=== PATIENT | female | born 1965 | race American Indian/Alaskan Native ===

== ENCOUNTER 2017-04-20 19:31 | Inpatient (IN) | payer OTHER ==
[2017-04-20 20:20] LABS: Basophils % (Auto) 0.5 % (0.0-1.8); Eosinophils % (Auto) 1.4 % (0.0-4.3); Hematocrit 21.5 % (30.3-42.9); Hemoglobin 6.5 gm/dl (10.1-14.3); Mean Corpuscular HGB Conc 30 % (30-34); Platelet Count 358 K/mm3 (140-440); Red Blood Count 3.32 M/mm3 (3.65-5.03); Red Cell Distribution Width 17.8 % (13.2-15.2); White Blood Count 4.4 K/mm3 (4.5-11.0)
[2017-04-20 20:21] LABS: Mean Corpuscular Hemoglobin 20 pg (28-32); Mean Corpuscular Volume 65 fl (79-97)
[2017-04-20 20:37] LABS: Anion Gap 20 mmol/L; BUN/Creatinine Ratio 14; Blood Urea Nitrogen 7 mg/dL (7-17); Calcium 8.5 mg/dL (8.4-10.2); Carbon Dioxide 20 mmol/L (22-30); Glucose 91 mg/dL (65-100); Potassium 3.9 mmol/L (3.6-5.0); Sodium 138 mmol/L (137-145)
[2017-04-21] MEDS ORDERED: NACL 0.9% 500 ML 500 ML IV ONE (00:33)
--- NOTE | 2017-04-21 00:41 | Emergency Department Report ---
ED General Adult HPI - General Chief complaint: Recheck/Abnormal Lab/Rx Stated complaint: MEDICAL CHECKUP Time Seen by Provider: 04/20/17 22:42 Source: patient Mode of arrival: Ambulatory Limitations: No Limitations - History of Present Illness Initial comments: 51 yo female who comes in today as she was instructed to come in for a blood transfusion. She states that she has been transfused in the past, and was contacted by her PMD on today due to her lab results. On her evaluation in the ED, her hgb is 6.5. She denies any chest pain, shortness of breath, nausea, vomiting, fever, or chills. -: year(s) (three years ) Consistency: constant Associated Symptoms: other (excessive ice eating/craving ) Treatments Prior to Arrival: none - Related Data Previous Rx's Medication Instructions Recorded Last Taken Type Docusate Sodium [Colace CAP] 100 mg PO BID #60 capsule 05/31/15 Unknown Rx Famotidine [Pepcid] 20 mg PO BID #60 tablet 05/31/15 Unknown Rx Ferrous Sulfate [Feosol 325 MG tab] 325 mg PO TID #90 tablet 05/31/15 Unknown Rx Lisinopril [Zestril TAB] 20 mg PO DAILY #30 tablet 05/31/15 Unknown Rx NIFEdipine XL [Procardia Xl] 60 mg PO DAILY #30 tablet 05/31/15 Unknown Rx Allergies Allergy/AdvReac Type Severity Reaction Status Date / Time No Known Allergies Allergy Unverified 06/14/13 08:35 ED Review of Systems ROS: Stated complaint: MEDICAL CHECKUP Other details as noted in HPI Constitutional: other (excessive ice eating ) Eyes: denies: eye pain, eye discharge, vision change ENT: denies: ear pain, throat pain Respiratory: denies: cough, shortness of breath, wheezing Cardiovascular: denies: chest pain, palpitations Endocrine: no symptoms reported Gastrointestinal: denies: abdominal pain, nausea, diarrhea Genitourinary: denies: urgency, dysuria, discharge Musculoskeletal: denies: back pain, joint swelling, arthralgia Skin: denies: rash, lesions Neurological: denies: headache, weakness, paresthesias Psychiatric: denies: anxiety, depression Hematological/Lymphatic: denies: easy bleeding, easy bruising ED Past Medical Hx - Past Medical History Hx Hypertension: Yes Hx CVA: No Hx Heart Attack/AMI: No Hx Congestive Heart Failure: No Hx Diabetes: No Hx Deep Vein Thrombosis: No Hx Pulmonary Embolism: No Hx GERD: No Hx Liver Disease: No Hx Renal Disease: No Hx Sickle Cell Disease: No Hx Arthritis: No Hx Headaches / Migraines: No Hx Seizures: No Hx Kidney Stones: No Hx Psychiatric Treatment: No Hx Asthma: No Hx COPD: No Hx Tuberculosis: No Hx Dementia: No Hx HIV: No Additional medical history: goiter. iron deficiency anemia - Surgical History Hx Coronary Stent: No Hx Open Heart Surgery: No Hx Pacemaker: No Hx Internal Defibrillator: No Hx Cholecystectomy: Yes Hx Appendectomy: No Hx Breast Surgery: No Additional Surgical History: x 1, Tubal Ligation - Social History Smoking Status: Never Smoker Substance Use Type: None - Medications Home Medications: Home Medications Medication Instructions Recorded Confirmed Last Taken Type Docusate Sodium [Colace CAP] 100 mg PO BID #60 capsule 05/31/15 Unknown Rx Famotidine [Pepcid] 20 mg PO BID #60 tablet 05/31/15 Unknown Rx Ferrous Sulfate [Feosol 325 MG tab] 325 mg PO TID #90 tablet 05/31/15 Unknown Rx Lisinopril [Zestril TAB] 20 mg PO DAILY #30 tablet 05/31/15 Unknown Rx NIFEdipine XL [Procardia Xl] 60 mg PO DAILY #30 tablet 05/31/15 Unknown Rx ED Physical Exam - General Limitations: No Limitations General appearance: alert, in no apparent distress - Head Head exam: Present: atraumatic, normocephalic - Eye Eye exam: Present: normal appearance - ENT ENT exam: Present: mucous membranes moist - Neck Neck exam: Present: normal inspection - Respiratory Respiratory exam: Present: normal lung sounds bilaterally. Absent: respiratory distress - Cardiovascular Cardiovascular Exam: Present: regular rate, normal rhythm. Absent: systolic murmur, diastolic murmur, rubs, gallop - GI/Abdominal GI/Abdominal exam: Present: soft, normal bowel sounds - Extremities Exam Extremities exam: Present: normal inspection - Back Exam Back exam: Present: normal inspection - Neurological Exam Neurological exam: Present: alert, oriented X3 - Psychiatric Psychiatric exam: Present: normal affect, normal mood - Skin Skin exam: Present: warm, dry, intact, normal color. Absent: rash ED Course Vital Signs 04/20/17 04/20/17 04/20/17 19:57 22:40 23:00 Temperature 99.7 F H 99 F Pulse Rate 81 80 74 Respiratory 22 18 Rate Blood Pressure 178/103 177/101 Blood Pressure 187/91 [Left] O2 Sat by Pulse 98 100 100 Oximetry - Reevaluation(s) Reevaluation #1: 04/21/17 00:44 The patient admits to a history of anemia which she has had several blood transfusions. She denies any hematemesis, vaginal bleeding, or bloody stools. Admits to eating ice excessively. Was informed that she needed to come to the ED for a blood transfusion. Reevaluation #2: 04/21/17 02:39 Patient to be discharged upon completion of blood transfusion and a repeat H/H. Care transferred to Dr. Reina. ED Medical Decision Making - Lab Data Result diagrams: 04/20/17 20:07 04/20/17 20:07 - Medical Decision Making Iron deficiency anemia - Differential Diagnosis iron deficiency anemia Critical care attestation.: If time is entered above; I have spent that time in minutes in the direct care of this critically ill patient, excluding procedure time. ED Disposition Clinical Impression: Iron deficiency anemia Disposition: DC-01 TO HOME OR SELFCARE Is pt being admited?: No Does the pt Need Aspirin: No Condition: Fair Instructions: Iron Deficiency Anemia (ED) Additional Instructions: Please follow up with your PMD on next week for further evaluation of your chronic anemia. Return to the ED for any nausea, vomiting, lightheadedness, dizziness, shortness of breath, or fatigue. Referrals: LORETTA TORRES MD [Primary Care Provider] - 3-5 Days
[2017-04-21 04:11] LABS: Hemoglobin 5.9 gm/dl (10.1-14.3)
[2017-04-21 04:12] LABS: Hematocrit 19.4 % (30.3-42.9)
[2017-04-21] MEDS ORDERED: MORPHINE IV PRN (04:38)
[2017-04-21] MEDS ORDERED: MILK OF MAGNESIA PO PRN (04:38)
[2017-04-21] MEDS ORDERED: DULCOLAX PR PRN (04:38)
[2017-04-21] MEDS ORDERED: TYLENOL PO PRN (04:38)
[2017-04-21] MEDS ORDERED: ZOFRAN IV PRN (04:38)
--- NOTE | 2017-04-21 04:38 | Progress Note ---
Hospitalist Physical - Constitutional Vitals: Temp Pulse Resp BP Pulse Ox 98.9 F 77 15 156/87 100 04/21/17 04:25 04/21/17 04:25 04/21/17 04:25 04/21/17 04:25 04/21/17 04:25 Results - Labs CBC & Chem 7: 04/21/17 02:56 04/20/17 20:07 Labs: Laboratory Last Values WBC 4.4 K/mm3 (4.5-11.0) L 04/20/17 20:07 RBC 3.32 M/mm3 (3.65-5.03) L 04/20/17 20:07 Hgb 5.9 gm/dl (10.1-14.3) L* 04/21/17 02:56 Hct 19.4 % (30.3-42.9) L* 04/21/17 02:56 MCV 65 fl (79-97) L 04/20/17 20:07 MCH 20 pg (28-32) L 04/20/17 20:07 MCHC 30 % (30-34) 04/20/17 20:07 RDW 17.8 % (13.2-15.2) H 04/20/17 20:07 Plt Count 358 K/mm3 (140-440) 04/20/17 20:07 Lymph % (Auto) 35.3 % (13.4-35.0) H 04/20/17 20:07 [place] % (Auto) 7.4 % (0.0-7.3) H 04/20/17 20:07 Eos % (Auto) 1.4 % (0.0-4.3) 04/20/17 20:07 Baso % (Auto) 0.5 % (0.0-1.8) 04/20/17 20:07 Lymph # 1.6 K/mm3 (1.2-5.4) 04/20/17 20:07 [place] # 0.3 K/mm3 (0.0-0.8) 04/20/17 20:07 Eos # 0.1 K/mm3 (0.0-0.4) 04/20/17 20:07 Baso # 0.0 K/mm3 (0.0-0.1) 04/20/17 20:07 Seg Neutrophils % 55.4 % (40.0-70.0) 04/20/17 20:07 Seg Neutrophils # 2.4 K/mm3 (1.8-7.7) 04/20/17 20:07 Sodium 138 mmol/L (137-145) 04/20/17 20:07 Potassium 3.9 mmol/L (3.6-5.0) 04/20/17 20:07 Chloride 102.0 mmol/L (98-107) 04/20/17 20:07 Carbon Dioxide 20 mmol/L (22-30) L 04/20/17 20:07 Anion Gap 20 mmol/L 04/20/17 20:07 BUN 7 mg/dL (7-17) 04/20/17 20:07 Creatinine 0.5 mg/dL (0.7-1.2) L 04/20/17 20:07 Estimated GFR > 60 ml/min 04/20/17 20:07 BUN/Creatinine Ratio 14 % 04/20/17 20:07 Glucose 91 mg/dL (65-100) 04/20/17 20:07 Calcium 8.5 mg/dL (8.4-10.2) 04/20/17 20:07 Blood Type O POSITIVE 04/20/17 20:07 Antibody Screen Negative 04/20/17 20:07 Crossmatch See Detail 04/20/17 20:07
--- NOTE | 2017-04-21 04:50 | History and Physical Report ---
History of Present Illness Date of examination: 04/21/17 Date of admission: 04/21/17 Chief complaint: Asked to come in for low hemoglobin History of present illness: Patient is 51-year-old with history of iron deficiency anemia, hypertension, obesity. She was sent in from primary care physician because of low hemoglobin. She apparently went to see primary care physician yesterday for routine follow -up and adjustment of antihypertensive medications. While there, routine blood work was done. Today she was called that her hemoglobin was very low 6.7. She denies any blood in the stool. No excessive blood loss from menses. She admits to fatigue, generalized weakness. She denies shortness of breath, chest pain, cough or vomiting. Workup has showed a hemoglobin of 6.5. She is being admitted for blood transfusion. Past History Past Medical History: anemia, hypertension, other (goiter) Past Surgical History: cholecystectomy, Other (tubal ligation) Social history: , lives with family, full code. denies: smoking, alcohol abuse Family history: diabetes, hypertension Medications and Allergies Allergies Allergy/AdvReac Type Severity Reaction Status Date / Time No Known Allergies Allergy Unverified 06/14/13 08:35 Home Medications Medication Instructions Recorded Confirmed Last Taken Type Docusate Sodium [Stool Softener] 100 mg PO BID 04/21/17 04/21/17 Unknown History Famotidine [Pepcid] 20 mg PO BID 04/21/17 04/21/17 Unknown History Ferrous Sulfate [Iron] 325 mg PO TID 04/21/17 04/21/17 Unknown History Lisinopril [Zestril] 20 mg PO DAILY 04/21/17 04/21/17 Unknown History NIFEdipine XL [Procardia Xl] 60 mg PO QDAY 04/21/17 04/21/17 Unknown History Ferrous Gluconate 240 mg PO QDAY #100 tablet 04/22/17 Unknown Rx Pantoprazole [Protonix] 40 mg PO BID #30 tablet 04/22/17 Unknown Rx Active Meds: Active Medications Acetaminophen (Tylenol) 650 mg PO Q4H PRN PRN Reason: Pain MILD(1-3)/Fever >100.5/TOBIAS Bisacodyl (Dulcolax) 10 mg PA QDAY PRN PRN Reason: Constipation unrelieved by MOM Dextrose/Sodium Chloride (D5ns) 1,000 mls @ 75 mls/hr IV DIRECT EUGENIE Magnesium Hydroxide (Milk Of Magnesia) 30 ml PO Q4H PRN PRN Reason: Constipation Morphine Sulfate (Morphine) 2 mg IV Q4H PRN PRN Reason: Pain, Moderate (4-6) Ondansetron HCl (Zofran) 4 mg IV Q6H PRN PRN Reason: nausea or vomiting Review of Systems All systems: negative (No fever, no cough, no hemetemesis, no abd pain. All other systems reviewed and are negative.) Exam - Physical Exam Narrative exam: GEN APPEARANCE : Not in acute distress, obese HEENT: Normocephalic, Atraumatic NECK : supple, throid enlarged. no JVD LUNGS: clear to auscultation bilaterally, no rales, no wheeze HEART: S1 and S2 regular, no murmurs, rubs or gallop, ABD: Soft, non tender, non distended, normal bowel sounds EXT: No edema, no clubbing, no cyanosis NEURO: Awake,alert, oriented x 3, Normal speech, moves all extremities Psych:Normal mood - Constitutional Vitals: Temp Pulse Resp BP Pulse Ox 98.6 F 78 16 166/88 100 04/21/17 04:40 04/21/17 04:40 04/21/17 04:40 04/21/17 04:40 04/21/17 04:40 Results - Labs CBC & Chem 7: 04/22/17 06:31 04/22/17 06:31 Labs: Abnormal lab results 04/20/17 04/20/17 04/20/17 Range/Units 20:07 20:07 20:07 WBC 4.4 L (4.5-11.0) K/mm3 RBC 3.32 L (3.65-5.03) M/mm3 Hgb 6.5 L (10.1-14.3) gm/dl Hct 21.5 L (30.3-42.9) % MCV 65 L (79-97) fl MCH 20 L (28-32) pg RDW 17.8 H (13.2-15.2) % Lymph % (Auto) 35.3 H (13.4-35.0) % [place] % (Auto) 7.4 H (0.0-7.3) % Carbon Dioxide 20 L (22-30) mmol/L Creatinine 0.5 L (0.7-1.2) mg/dL Crossmatch See Detail 04/21/17 Range/Units 02:56 WBC (4.5-11.0) K/mm3 RBC (3.65-5.03) M/mm3 Hgb 5.9 L* (10.1-14.3) gm/dl Hct 19.4 L* (30.3-42.9) % MCV (79-97) fl MCH (28-32) pg RDW (13.2-15.2) % Lymph % (Auto) (13.4-35.0) % [place] % (Auto) (0.0-7.3) % Carbon Dioxide (22-30) mmol/L Creatinine (0.7-1.2) mg/dL Crossmatch Assessment and Plan Anemia with hemeoglobin 6.5. Admit to medical/surgical floor. Transfuse 2 units PRBC. Obtain serum Iron, Total iron-binding capacity, Ferritin and Reticulocyte counts. Patient denies any heavy periods. She denies blood in stools. Obtain stool occult blood Hypertensive urgency. BP elevated. Will resume home medications. Give Hydralazine iv prn for SBP>170 or DBP>110 Goiter. Patient states she is working on having surgery done. DVT prophylaxis. SCDs only until bleeding ruled out. Full CODE STATUS
[2017-04-21 05:17] LABS: Reticulocyte % 1.88 % (0.78-2.58)
[2017-04-21 05:28] LABS: Iron 16 ug/dL (37-170); Total Iron Binding Capacity 422 mcg/dL (250-450)
[2017-04-21] MEDS ORDERED: APRESOLINE IV PRN (06:16)
[2017-04-21] MEDS ORDERED: NORVASC ONE ×2 (08:14→11:28)
[2017-04-21] MEDS ORDERED: PEPCID ONE ×2 (08:15→08:19)
[2017-04-21] MEDS: NORVASC PO SCH ×2 (08:15→11:30)
[2017-04-21] MEDS: PROTONIX PO SCH ×2 (08:16→11:29)
[2017-04-21] MEDS ORDERED: D5NS 1,000 ML IV ONE (08:21)
[2017-04-21] MEDS ORDERED: PROTONIX PO ONE ×2 (08:27→11:29)
[2017-04-21] MEDS: D5NS 1,000 ML IV SCH (08:31)
[2017-04-21 15:26] LABS: Hematocrit 27.8 % (30.3-42.9); Hemoglobin 8.8 gm/dl (10.1-14.3)
--- NOTE | 2017-04-21 17:43 | Event Note ---
Date: 04/21/17 Patient was admitted this morning with uncontrolled blood pressures and severe anemia Received blood transfusion, slight improvement in H&H, blood pressures are moderately controlled Medical records reviewed, continue current management
[2017-04-22 07:02] LABS: Basophils % (Auto) 0.7 % (0.0-1.8); Eosinophils % (Auto) 1.3 % (0.0-4.3); Hematocrit 26.6 % (30.3-42.9); Hemoglobin 8.3 gm/dl (10.1-14.3); Mean Corpuscular HGB Conc 31 % (30-34); Platelet Count 330 K/mm3 (140-440); Red Blood Count 3.82 M/mm3 (3.65-5.03); White Blood Count 4.7 K/mm3 (4.5-11.0)
[2017-04-22 07:08] LABS: Mean Corpuscular Hemoglobin 22 pg (28-32); Mean Corpuscular Volume 70 fl (79-97); Red Cell Distribution Width 22.1 % (13.2-15.2)
[2017-04-22 07:26] LABS: BUN/Creatinine Ratio 12; Blood Urea Nitrogen 6 mg/dL (7-17); Calcium 8.1 mg/dL (8.4-10.2); Carbon Dioxide 20 mmol/L (22-30); Glucose 90 mg/dL (65-100)
[2017-04-22 07:27] LABS: Anion Gap 18 mmol/L; Chloride 105.1 mmol/L (98-107); Potassium 3.6 mmol/L (3.6-5.0); Sodium 139 mmol/L (137-145)
[2017-04-22 08:35] VITALS: BP 164/84
[2017-04-22] MEDS: D5NS 1,000 ML IV SCH (09:24)
[2017-04-22] MEDS: NORVASC PO SCH (09:25)
[2017-04-22] MEDS: PROTONIX PO SCH (09:25)
--- NOTE | 2017-04-22 14:14 | Discharge Summary ---
Providers - Providers Date of Admission: 04/21/17 04:39 Date of discharge: 04/22/17 Attending physician: DARIEL LOVELL Primary care physician: LORETTA TORRES Hospitalization Condition: Fair Hospital course: Assessment and Plan Anemia with Hmeoglobin 6.5. Admit to medical/surgical floor. Transfuse 2 units PRBC. Obtain serum Iron, Total iron-binding capacity, Ferritin and Reticulocyte counts. Patient denies any heavy periods. She denies blood in stools. Hypertensive urgency. BP elevated his urine medications DVT prophylaxis. SCDs only until bleeding ruled out. 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 and GI as out patient Disposition: DC-01 TO HOME OR SELFCARE Core Measure Documentation - Palliative Care Palliative Care/ Comfort Measures: Not Applicable - Core Measures Any of the following diagnoses?: none Exam - Constitutional Vitals: Temp Pulse Resp BP Pulse Ox 98.7 F 89 20 164/84 100 04/22/17 07:53 04/22/17 09:25 04/22/17 07:53 04/22/17 09:25 04/22/17 07:53 General appearance: Present: no acute distress, well-nourished - EENT Eyes: Present: PERRL ENT: hearing intact, clear oral mucosa - Neck Neck: Present: supple, normal ROM - Respiratory Respiratory effort: normal Respiratory: bilateral: CTA - Cardiovascular Heart rate: 70 Rhythm: regular Heart Sounds: Present: S1 & S2. Absent: rub, click - Extremities Extremities: pulses symmetrical, No edema Peripheral Pulses: within normal limits - Abdominal General gastrointestinal: Present: soft, non-tender, non-distended, normal bowel sounds Female genitourinary: Present: normal - Integumentary Integumentary: Present: clear, warm, dry - Musculoskeletal Musculoskeletal: gait normal, strength equal bilaterally - Psychiatric Psychiatric: appropriate mood/affect, intact judgment & insight - Neurologic Neurologic: CNII-XII intact, moves all extremities - Allied Health Allied health notes reviewed: nursing, case management Plan Activity: no restrictions Diet: regular Follow up with: LORETTA TORRES MD [Primary Care Provider] - 3-5 Days SOLOMON IGLESIAS MD [Staff Physician] - 7 Days MARIAELENA FLETCHER MD [Staff Physician] - 7 Days
== END 2017-04-22 15:40 | disposition home or self-care (01) | DRG 812 ==
LOC: ED 19:31 → 3A 04-21 04:39
PROVIDERS: ADMIT Internal Medicine; ATTEND Internal Medicine
PROC: 30233N1 Transfusion of Nonautologous Red Blood Cells into Peripheral Vein, Percutaneous Approach (ICD-10-PCS; principal; 2017-04-21)
DX: D50.9 Iron deficiency anemia, unspecified (principal); I10 Essential (primary) hypertension; E66.9 Obesity, unspecified; I16.0 Hypertensive urgency; E04.9 Nontoxic goiter, unspecified; Z98.51 Tubal ligation status; Z90.49 Acquired absence of other specified parts of digestive tract; Z79.899 Other long term (current) drug therapy; Z68.34 Body mass index [BMI] 34.0-34.9, adult; Z83.3 Family history of diabetes mellitus; Z82.49 Family history of ischemic heart disease and other diseases of the circulatory system
CPT/HCPCS: 36415; 36430; 80048; 82728; 83550; 85014; 85018; 85025; 85045; 86850; 86900; 86901; 86920; 96374; J0360; J7040; J7042; P9016

== ENCOUNTER 2017-11-07 15:59 | Outpatient (CLI) | payer OTHER ==
--- NOTE | 2017-11-07 21:36 | Ultrasound Report ---
FINAL REPORT PROCEDURE: US TRANSVAGINAL TECHNIQUE: Real-time transvaginal sonography in multiple planes of the pelvis was performed with image documentation. This examination was performed without Doppler. Vascular abnormalities, including ovarian torsion, will not be detectable without Doppler evaluation. CPT 46093 HISTORY: HYPERTROPHY OF UTERUS COMPARISON: No prior studies are available for comparison. FINDINGS: UTERUS Size: 9.7 x 8.6 x 7.3 cm. Endometrial thickness: 8.8 mm. Orientation: anteverted. Cervix: Normal. Fibroids/masses: There are 3 discrete uterine fibroids. There is a fibroid in the uterine fundus measuring 2.5 centimeters. There is a fibroid in the anterior body measuring 2.1 centimeters and a fibroid in the posterior body measuring 2.4 centimeters.. RIGHT Ovary: 2.9 x 1.7 x 3 cm. Appearance: Normal. LEFT Ovary: Not identified. Pelvic fluid: None. Other: None. IMPRESSION: Uterine fibroids. Normal right ovary. Left ovary not seen. There is no free pelvic fluid.
== END 2017-11-07 16:00 | disposition home or self-care (01) ==
LOC: US 15:59
PROVIDERS: ATTEND Advanced Practice Midwife
DX: D25.9 Leiomyoma of uterus, unspecified (principal); I10 Essential (primary) hypertension; D50.9 Iron deficiency anemia, unspecified; Z90.49 Acquired absence of other specified parts of digestive tract
CPT/HCPCS: 76830